=== PATIENT | female | born 1950 | race Hispanic/Latino ===

== ENCOUNTER → 2018-03-13 | Outpatient (CLI) | payer MEDICARE ==
[~2018-03-13] MED LIST: PROGESTERONE PO; TYLENOL PM PO
== END | disposition home or self-care (01) ==
LOC: RAH 10:47
PROVIDERS: ATTEND Nurse Practitioner Adult Health
DX: Z12.31 Encounter for screening mammogram for malignant neoplasm of breast (principal)
CPT/HCPCS: 77067

== ENCOUNTER 2018-06-06 16:25 | Emergency (ER) | payer MEDICARE ==
[2018-06-06] MEDS ORDERED: ONDANSETRON HCL 4 MG/2 ML VIAL ONE (16:37)
[2018-06-06] MEDS ORDERED: SODIUM CHLORIDE 0.9% 1000ML 1,000 ML IV ONE (17:48)
[2018-06-06] MEDS ORDERED: ACETAMINOPHEN 325 MG TAB ONE (17:52)
[2018-06-06 18:35] LABS: APPEARANCE,URINE Turbid (CLEAR); BILIRUBIN,URINE Small (NEGATIVE); COLOR,URINE Dark Yellow (YELLOW); GLUCOSE, URINE (UA) Negative (NEGATIVE); KETONES,URINE 15 mg/dL (NEGATIVE); LEUKOCYTE ESTERASE ,URINE Large (NEGATIVE); NITRATE,URINE Positive (NEGATIVE); OCCULT BLOOD,URINE Moderate (NEGATIVE); PH,URINE 5.5 (5.0-8.0); PROTEIN,URINE POS 1+ (NEGATIVE)
[2018-06-06 18:48] LABS: BACTERIA,URINE Moderate /HPF (None Seen)
[2018-06-06 18:49] LABS: TRANSITIONAL EPI CELLS,URINE Few /HPF (None Seen); WBC,URINE 26-50 /HPF (0-1)
[2018-06-06] MEDS ORDERED: PROMETHAZINE HCL 25 MG/ML 1ML AMPULE IM ONE (19:32)
[2018-06-06 19:37] LABS: BASOPHILS % (AUTO) 0.2 % (0.0-5.0); EOSINOPHILS % (AUTO) 0.2 % (0.0-8.0); HEMATOCRIT 45.9 % (36-48); LYMPHOCYTES % (AUTO) 18.7 % (21.0-51.0); MEAN CORPUSCULAR HEMOGLOBIN 30.7 pg (27.0-33.0); MEAN CORPUSCULAR HGB CONC 31.9 g/dL (32.0-36.0); MEAN CORPUSCULAR VOLUME 96.1 fL (79-99); MONOCYTES % (AUTO) 9.2 % (3.0-13.0); NEUTROPHILS % (AUTO) 71.7 % (40.0-77.0); PLATELET COUNT (AUTO) 251 K/uL (130-400); RED BLOOD CELL COUNT(AUTO) 4.77 MIL/uL (4.00-5.50)
[2018-06-06 20:16] LABS: CREATININE 0.8 mg/dL (0.5-1.5); POTASSIUM 3.7 mmol/L (3.5-5.1)
[2018-06-06 20:21] LABS: ALBUMIN 3.9 g/dL (3.5-5.0); BILIRUBIN,TOTAL 0.5 mg/dL (0.2-1.0)
[2018-06-06] MEDS ORDERED: KETOROLAC TROMETHAMINE 15MG/ML ONE (20:32)
[2018-06-06] MEDS ORDERED: NITROFURANTOIN MONOHYD/M-CRYST 100 MG CAPSULE PO ONE (21:01)
== END 2018-06-06 22:25 | disposition home or self-care (01) ==
LOC: EDH 16:25
DX: K52.9 Noninfective gastroenteritis and colitis, unspecified (principal); N30.00 Acute cystitis without hematuria; Z90.49 Acquired absence of other specified parts of digestive tract; Z90.710 Acquired absence of both cervix and uterus
CPT/HCPCS: 36415; 80053; 81001; 85025; 87077; 87088; 87186; 96361; 96372; 96374; 96375; 99283; J1885; J2405; J2550; J7030

== ENCOUNTER → 2019-03-15 | Outpatient (CLI) | payer OTHER | END | disposition home or self-care (01) | LOC: RAH 10:51 | PROVIDERS: ATTEND Nurse Practitioner Adult Health | DX: Z12.31 Encounter for screening mammogram for malignant neoplasm of breast (principal); R05 Cough | CPT/HCPCS: 71046; 77067 ==

== ENCOUNTER 2019-07-09 15:10 | Emergency (ER) | payer OTHER | END 2019-07-09 16:10 | disposition home or self-care (01) | LOC: EDH 15:10 | DX: S60.222A Contusion of left hand, initial encounter (principal); S60.221A Contusion of right hand, initial encounter; S80.12XA Contusion of left lower leg, initial encounter; S80.11XA Contusion of right lower leg, initial encounter; S30.1XXA Contusion of abdominal wall, initial encounter; Z90.49 Acquired absence of other specified parts of digestive tract; Z90.710 Acquired absence of both cervix and uterus; V59.9XXA Occupant (driver) (passenger) of pick-up truck or van injured in unspecified traffic accident, initial encounter; Y93.89 Activity, other specified; Y92.89 Other specified places as the place of occurrence of the external cause; Y99.8 Other external cause status | CPT/HCPCS: 99281 ==

== ENCOUNTER → 2021-10-04 | Outpatient (CLI) | payer OTHER | END | disposition home or self-care (01) | LOC: RAH 08:41 | PROVIDERS: ATTEND Family Medicine | DX: Z12.31 Encounter for screening mammogram for malignant neoplasm of breast (principal) | CPT/HCPCS: 77067 ==

== ENCOUNTER → 2023-09-03 | Outpatient (CLI) | payer MEDICARE | END | disposition home or self-care (01) | LOC: OIH 08:41 | PROVIDERS: ATTEND Internal Medicine | DX: R05.3 Chronic cough (principal) | CPT/HCPCS: 71046 ==

== ENCOUNTER → 2024-03-17 | Outpatient (CLI) | payer OTHER, MEDICARE | END | disposition home or self-care (01) | LOC: RAH 09:19 | PROVIDERS: ATTEND Internal Medicine | DX: Z12.31 Encounter for screening mammogram for malignant neoplasm of breast (principal); R92.30 Dense breasts, unspecified | CPT/HCPCS: 77067 ==

== ENCOUNTER 2025-01-25 07:23 | Day surgery (SDC) | payer OTHER, MEDICARE ==
[~2025-01-25] VITALS: Ht 157.5 cm; Wt 59.9 kg
[2025-01-25] VITALS (10 sets, daily range): BP systolic 106–123; BP diastolic 54–87; PULSE 77–88; RESP 16–18; TEMP 97.4–98.1
[2025-01-25] MEDS: 0.9%NACL 1000ML 1,000 ML IV ONE (07:41)
== END 2025-01-25 10:55 | disposition home or self-care (01) ==
LOC: DAH 07:23
PROVIDERS: ATTEND Internal Medicine Gastroenterology
DX: Z12.11 Encounter for screening for malignant neoplasm of colon (principal); K21.9 Gastro-esophageal reflux disease without esophagitis; Q85.02 Neurofibromatosis, type 2; Z82.49 Family history of ischemic heart disease and other diseases of the circulatory system
CPT/HCPCS: 45378; J7030; J2704; A4620; A4215; J3490

== ENCOUNTER → 2025-03-24 | Outpatient (CLI) | payer OTHER, MEDICARE | END | disposition home or self-care (01) | LOC: RAH 08:37 | PROVIDERS: ATTEND Nurse Practitioner Adult Health | DX: Z12.31 Encounter for screening mammogram for malignant neoplasm of breast (principal) | CPT/HCPCS: 77063; 77067 ==